=== PATIENT | female | born 1985 | race Caucasian/White ===

== ENCOUNTER 2020-04-01 14:11 | Emergency (ER) | payer MEDICAID, SELFPAY ==
[~2020-04-01] VITALS: Ht 160 cm; Wt 54.0 kg
[2020-04-01 15:45] VITALS: BP 124/79
== END 2020-04-01 16:00 | disposition home or self-care (01) ==
LOC: ER 14:11
DX: U07.1 COVID-19 (principal); J12.89 Other viral pneumonia; R03.0 Elevated blood-pressure reading, without diagnosis of hypertension; J32.9 Chronic sinusitis, unspecified; Z87.09 Personal history of other diseases of the respiratory system
CPT/HCPCS: 71045; 81025; 87635; 99283; C9803

== ENCOUNTER 2020-06-20 21:24 | Emergency (ER) | payer MEDICAID ==
[~2020-06-20] VITALS: Ht 165.1 cm; Wt 66.0 kg
[2020-06-20 21:25] VITALS: BP 142/110
== END 2020-06-20 21:36 | disposition left against medical advice (07) ==
LOC: ER 21:24
DX: T40.1X1A Poisoning by heroin, accidental (unintentional), initial encounter (principal); X58.XXXA Exposure to other specified factors, initial encounter; Z53.21 Procedure and treatment not carried out due to patient leaving prior to being seen by health care provider